=== PATIENT | male | born 1985 | race Caucasian/White ===

== ENCOUNTER 2022-09-29 20:54 | Emergency (ER) | payer BC ==
[~2022-09-29] VITALS: Ht 177.8 cm; Wt 99.3 kg
[2022-09-29 21:26] VITALS: BP 125/75; PULSE 62; RESP 20; TEMP 98; O2SAT 100
--- NOTE | 2022-09-29 22:20 | NUR ---
37YR OLD M BIB SELF C/O DISCHARGE FROM UNBILICAL REGION X 4DAYS. PT STATES PAIN 10/10 ONLY WHEN PRESSURE IS APPLIED TO UMBILICAL AREA. NO CP OR SOB NOTED. PT RESTING IN BED. NKDA NO MED HX
[2022-09-29] MEDS ORDERED: SULF-59 PO (22:32)
--- NOTE | 2022-09-29 22:37 | NUR ---
Patient discharged with v/s stable. Written and verbal after care instructions given and explained. Patient verbalized understanding. Ambulatory with steady gait. All questions addressed prior to discharge. Advised to follow up with PMD.
== END 2022-09-29 22:37 | disposition home or self-care (01) ==
LOC: MED 20:54
DX: L03.311 Cellulitis of abdominal wall (principal); P38.9 Omphalitis without hemorrhage; Z72.89 Other problems related to lifestyle; Z79.899 Other long term (current) drug therapy; Z98.890 Other specified postprocedural states
CPT/HCPCS: 99281

== ENCOUNTER 2022-11-10 21:15 | Emergency (ER) | payer BC ==
[~2022-11-10] VITALS: Ht 170.2 cm; Wt 95.3 kg
[~2022-11-10 21:15] MED LIST: SULF-59 PO
[2022-11-10 21:25] VITALS: BP 140/86; PULSE 62; RESP 16; TEMP 98.1; O2SAT 97
--- NOTE | 2022-11-10 21:28 | NUR ---
TO LOBBY A/W BED AMBULATORY
--- NOTE | 2022-11-10 22:00 | NUR ---
SEEN AND EXAMINED BY PA
[2022-11-10] MEDS ORDERED: KETOROLAC 30 MG/ML VIAL IM ONE (22:05)
[2022-11-10] MEDS ORDERED: ONDANSETRON 4 MG ODT PO ONE (22:05)
[2022-11-10 22:18] LABS: BASOPHILS % (AUTO) 0.4 % (0.0-2.0); EOSINOPHILS % (AUTO) 0.4 % (0.0-4.0); HEMATOCRIT 45.8 % (36-52); HEMOGLOBIN 15.6 g/dL (12.0-18.0); LYMPHOCYTES # (AUTO) 1.5 K/uL (2.0-11.5); LYMPHOCYTES % (AUTO) 13.6 % (20.5-51.1); MEAN CORPUSCULAR HEMOGLOBIN 32 pg (27-31); MEAN CORPUSCULAR HGB CONC 34 g/dL (33-37); MEAN CORPUSCULAR VOLUME 95.4 fL (80-94); MONOCYTES # (AUTO) 0.6 K/uL (0.8-1.0); MONOCYTES % (AUTO) 5.8 % (1.7-9.3); NEUTROPHILS # (AUTO) 8.6 K/uL (1.8-7.7); NEUTROPHILS % (AUTO) 79.8 % (42.2-75.2); PLATELET COUNT (AUTO) 241 K/uL (140-450); RED CELL DISTRIBUTION WIDTH 12.8 % (11.6-13.7); WHITE BLOOD COUNT (AUTO) 10.8 K/uL (4.8-10.8)
[2022-11-10 22:33] LABS: ALBUMIN 3.7 g/dL (3.4-5.0); ANION GAP 11.4 (8-16); ASPARTATE AMINOTRANSFERASE 53 U/L (15-37); CARBON DIOXIDE 31.8 mmol/L (21-32); CHLORIDE 102 mmol/L (98-107); CREATININE 1.2 mg/dL (0.6-1.3); GFR ARICAN-AMERICAN 87 mL/min (>90); GLUCOSE 92 mg/dL (74-106); POTASSIUM 4.2 mmol/L (3.5-5.1); SODIUM SERUM 141 mmol/L (136-145); TOTAL BILIRUBIN 2.1 mg/dL (0.0-1.0); UREA NITROGEN, BLOOD 15 mg/dL (7-18)
[2022-11-10 22:39] LABS: APPEARANCE,URINE CLEAR (CLEAR); BILIRUBIN,URINE NEGATIVE (NEGATIVE); BLOOD, URINE NEGATIVE (NEGATIVE); COLOR,URINE YELLOW (YELLOW); LEUKOCYTE ESTERASE ,URINE NEGATIVE (NEGATIVE); NITRITE, URINE NEGATIVE (NEGATIVE); PH,URINE 6.5 (5.0-9.0); UGLUCOSE NEGATIVE (NEGATIVE)
[2022-11-10 22:47] LABS: LIPASE 11114 U/L (73-393)
--- NOTE | 2022-11-10 23:06 | NUR ---
PT AMBULATED TO ER BED 4
--- NOTE | 2022-11-10 23:06 | NUR ---
BIB self for generalized abdominal pain. per pt, current pain level 5/10. per pt, pmhx of gastric bypass surgery. denies any allergies.
--- NOTE | 2022-11-11 03:40 | NUR ---
Pt is resting comfortably at this time, rise and fall of chest noted. No s/s pain or distress. by bedside.
--- NOTE | 2022-11-11 07:18 | NUR ---
[phone]: MAY. NUMBER TO UPDATE WHEN COVID RESULTS AND ULTRASOUND RESULTS ARE BACK
--- NOTE | 2022-11-11 07:20 | NUR ---
Report recieved from LORENA Mckinney for transfer of care.
--- NOTE | 2022-11-11 08:32 | NUR ---
Patient is sleeping on bed, with no signs of distress noted. Call light is within reach.
--- NOTE | 2022-11-11 10:12 | NUR ---
Patient was updated on ETA of transfer.
--- NOTE | 2022-11-11 10:36 | NUR ---
Report given to Maria at [facility].
[2022-11-11 10:43] VITALS: BP 128/80; PULSE 60; RESP 20; TEMP 97.8; O2SAT 98
--- NOTE | 2022-11-11 10:43 | NUR ---
Patient to be transferred to [facility]. Is being transferred due to Insurance. Receiving facility has accepting physician and available space. ER physician has signed transfer form. Patient or responsible constitution party has agreed to transfer and signed form. Patient belongings inventoried and will be sent with patient. Copy of nursing notes, lab reports, EKG, Physicians Orders and X-rays to be sent with patient. Report called to LORENA Sifuentes at receiving facility. [facility] ambulance service has been called for transfer. ETA is now.
== END 2022-11-11 10:43 | disposition short-term general hospital (02) ==
LOC: MED 21:15
DX: I31.9 Disease of pericardium, unspecified (principal); R10.9 Unspecified abdominal pain; R11.10 Vomiting, unspecified; Z98.84 Bariatric surgery status; Z79.899 Other long term (current) drug therapy; Z20.822 Contact with and (suspected) exposure to COVID-19
CPT/HCPCS: 36415; 74177; 76705; 80053; 81003; 83690; 84484; 85025; 87426; 96372; 99285; J1885; Q0092; Q0162; Q9967